=== PATIENT | female | born 1945 | race Caucasian/White ===

== ENCOUNTER 2016-10-22 11:33 | Inpatient (IN) | payer OTHER, MEDICARE ==
[~2016-10-22] VITALS: Ht 152.4 cm; Wt 75.4 kg
[~2016-10-22 11:33] MED LIST: AMITIZA24 MICROGR PO; AMITRIPTYLINE100 MG PO; AMLODIPINE BESY10 MG PO; ATARAX10 MG PO; ATIVAN1 MG PO; BENTYL20 MG PO; CEFTIN500 MG PO; CHLORTHALIDONE25 MG PO; CIPRO500 MG PO; CYMBALTA60 MG PO; DIAZEPAM10 MG PO; DIOVAN160 MG PO; DOCUSATE SODIU1 EAC1 PO; FOSAMAX70 MG PO; GABAPENTIN300 MG PO; HYDROCHLOROTHIA25 MG PO; HYDROXYZINE HCL50 MG PO; KEFLEX500 MG PO; LACTULOSE10 GM/151 PO; LEVAQUIN750 MG PO; LEVO-T50 MCG PO; LEVOTHYROXINE50 MCG PO; LEVOTHYROXINE75 MCG PO; LORAZEPAM2 MG PO; LOSARTAN POTAS100 MG PO; LOSARTAN POTASS25 MG PO; NEURONTIN300 MG PO; NEURONTIN400 MG PO; NORVASC10 MG PO; OXYCODONE HCL20 M1 PO; PRAZOSIN HCL1 MG PO; PREDNISONE10 MG PO; PROAIR HFA8.5 GM IH; QUETIAPINE FUM200 MG PO; SEROQUEL100 MG PO; SEROQUEL200 MG PO; SERTRALINE HCL100 MG PO; SERTRALINE HCL50 MG PO; SPIRIVA RESPIMAT4 GM IH; SPIRIVA1 INHALATI IH; SUBUTEX; TENORMIN100 MG PO; TRAMADOL HCL50 MG PO; TRAZODONE HCL50 MG PO; ULTRAM50 MG PO; VENTOLIN HFA18 GM IH; [UNRECOGNIZED DRUG - OTHER] PO
[2016-10-22 12:41] LABS: HEMATOCRIT 46.7 % (36.0-46.0); MCH 28.5 PG (29.0-34.0); MCV 83.8 FL (83-99); MEAN PLAT.VOLUME 9.2 uM^3 (9.5-12.4); PLATELET COUNT 293 K/uL (156-360); RBC DIS.WIDTH-CV 14.9 % (11.8-14.6); RBC DIS.WIDTH-SD 45.2 % (39-53); RED BLOOD COUNT 5.57 M/uL (3.80-5.20); WHITE BLOOD COUNT 10.9 K/uL (4.1-10.2)
[2016-10-22 12:44] LABS: CHLORIDE 102 mEq/L (99-109); SODIUM 137 mEq/L (136-147)
[2016-10-22 12:46] LABS: GLUCOSE 130 mg/dL (70-99)
[2016-10-22 12:47] LABS: ANION GAP 12 MEQ/L (2-14)
[2016-10-22 12:50] LABS: GFR ESTIMATE (CALCULATED) > 59 mL/min/
[2016-10-22 12:51] LABS: UREA NITROGEN (BUN) 6 mg/dL (9-23)
[2016-10-22 12:57] LABS: TROP-I INTERPRETATION NEGATIVE; TROPONIN-I 0.01 ng/mL (0.0-0.30)
[2016-10-22 13:41] LABS: ADD MIUA? YES; BILIRUBIN NEGATIVE; BLOOD SMALL; COLOR YELLOW ((YELLOW)); GLUCOSE (STRIP) 50; KETONES 20; LEUKOCYTES NEGATIVE; NITRITE NEGATIVE; PROTEIN (STRIP) 100; SPECIFIC GRAVITY 1.013 (1.000-1.030); UROBILINOGEN 0.2 MG/DL (0.2-1.0)
[2016-10-22 13:56] LABS: BACTERIA NONE SEEN /HPF; EPITHELIAL CELLS RARE /HPF; MUCUS TRACE /LPF; UCUL ADDED? NO; WHITE BLOOD CELLS 0-5 /HPF (0-5)
[2016-10-22 19:13] LABS: IRON 118 MCG/DL (35-150)
[2016-10-22 19:21] VITALS: BP 218/98
[2016-10-22 19:52] LABS: LIPASE < 3.0 U/L (1.0-51.0)
[2016-10-22 21:07] VITALS: BP 200/90
[2016-10-23] VITALS (9 sets, daily range): BP systolic 142–206; BP diastolic 72–98
[2016-10-23] MEDS ORDERED: LEVOTHYROXINE50 MCG PO (00:25)
[2016-10-23] MEDS ORDERED: PANTOPRAZOLE SO40 MG PO (00:25)
[2016-10-23] MEDS ORDERED: LOSARTAN POTASS25 MG PO (00:26)
[2016-10-23] MEDS ORDERED: DULOXETINE HCL30 MG PO (00:26)
[2016-10-23] MEDS ORDERED: SPIRIVA RESPIMAT4 GM IH (00:26)
[2016-10-23 02:02] LABS: CHLORIDE 102 mEq/L (99-109); POTASSIUM 3.3 mEq/L (3.7-5.4); SODIUM 138 mEq/L (136-147)
[2016-10-23 02:03] LABS: MAGNESIUM 2.5 mg/dL (1.3-2.7)
[2016-10-23 02:05] LABS: GLUCOSE 148 mg/dL (70-99)
[2016-10-23 02:06] LABS: ANION GAP 18 MEQ/L (2-14); TOTAL BILIRUBIN 1.6 mg/dL (0.0-1.0)
[2016-10-23 02:07] LABS: SERUM ETHYL ALCOHOL < 10 mg/dL
[2016-10-23 02:08] LABS: ALKALINE PHOSPHATASE 81 IU/L (3-129); GFR ESTIMATE (CALCULATED) > 59 mL/min/
[2016-10-23 02:09] LABS: UREA NITROGEN (BUN) 11 mg/dL (9-23)
[2016-10-23 02:12] LABS: LIPASE 8 U/L (1.0-51.0)
[2016-10-23 05:56] LABS: EOSINOPHIL (%) 0 % (0-5); HEMATOCRIT 50.2 % (36.0-46.0); IMMATURE GRANULOCYTE (%) 0.7 % (0.0-0.7); IMMATURE GRANULOCYTE COUNT 0.1 K/uL; MCH 29.3 PG (29.0-34.0); MCHC 35.1 G/DL (30.0-36.0); MCV 83.7 FL (83-99); MEAN PLAT.VOLUME 9.4 uM^3 (9.5-12.4); MONOCYTE (%) 7.7 % (3-12); MONOCYTE COUNT 1.5 K/uL (0-0.8); NEUTROPHIL (%) 81.2 % (45-76); PLATELET COUNT 370 K/uL (156-360); RBC DIS.WIDTH-CV 16.2 % (11.8-14.6); RBC DIS.WIDTH-SD 47.7 % (39-53); WHITE BLOOD COUNT 19.7 K/uL (4.1-10.2)
[2016-10-23 06:24] LABS: ALKALINE PHOSPHATASE 63 IU/L (3-129); ANION GAP 12 MEQ/L (2-14); CHLORIDE 100 MEQ/L (99-109); DIRECT BILIRUBIN 0.3 mg/dL (0.0-0.3); GFR ESTIMATE (CALCULATED) > 59 mL/min/; GLUCOSE 127 mg/dL (70-99); SAMPLE HEMOLYSIS CHECK 0; SAMPLE ICTERIC CHECK 0; SAMPLE LIPEMIA CHECK 0; SODIUM 136 MEQ/L (136-147); TOTAL BILIRUBIN 1.3 MG/DL (0.0-1.0); UREA NITROGEN (BUN) 12 mg/dL (9-23)
[2016-10-23 06:25] LABS: POINT-OF-CARE METER ID UU13113831
[2016-10-23 07:51] LABS: ADD MIUA? YES; BILIRUBIN NEGATIVE; BLOOD SMALL; COLOR AMBER ((YELLOW)); GLUCOSE (STRIP) NEGATIVE; KETONES 20; LEUKOCYTES SMALL; NITRITE NEGATIVE; PROTEIN (STRIP) >=500; SPECIFIC GRAVITY 1.017 (1.000-1.030); UROBILINOGEN 0.2 MG/DL (0.2-1.0)
[2016-10-23 08:22] LABS: RED BLOOD CELLS 0-5 /HPF (0-5); WHITE BLOOD CELLS 30-40 /HPF (0-5)
[2016-10-23 08:23] LABS: BACTERIA 4+ /HPF; CASTS NONE SEEN /LPF; CRYSTALS NONE SEEN; EPITHELIAL CELLS RARE /HPF; MUCUS 1+ /LPF; UCUL ADDED? YES
[2016-10-23 08:28] LABS: AMPHETAMINES QUANT VALUE 0 NG/ML; BARBITUATES QUANT VALUE 0 NG/ML; BENZODIAZEPINES, URINE SCREEN POSITIVE (200 ng/mL); PHENCYCLIDINE QUANT VALUE 0 NG/ML
[2016-10-23] MEDS ORDERED: AMLODIPINE BESY10 MG PO (09:43)
[2016-10-23] MEDS ORDERED: PRAZOSIN HCL2 MG PO (09:44)
[2016-10-23] MEDS ORDERED: QUETIAPINE FUM300 M1 PO (09:44)
[2016-10-23] MEDS ORDERED: [UNRECOGNIZED DRUG - SUPPLY] MC (12:11)
[2016-10-23 12:13] LABS: POINT-OF-CARE METER ID UU13113831
[2016-10-23] MEDS ORDERED: BREO ELLIPTA I1 EACH IH (12:13)
[2016-10-23] MEDS ORDERED: FOSAMAX70 MG PO (14:31)
[2016-10-23] MEDS ORDERED: CALCIUM500 M4 PO (14:33)
[2016-10-23] MEDS ORDERED: VITAMIN D31000 UNI2 PO (14:33)
[2016-10-23 18:12] LABS: POINT-OF-CARE METER ID UU13113700
[2016-10-23 18:14] LABS: EOSINOPHIL (%) 0.1 % (0-5); HEMATOCRIT 46.6 % (36.0-46.0); IMMATURE GRANULOCYTE (%) 0.5 % (0.0-0.7); IMMATURE GRANULOCYTE COUNT 0.1 K/uL; INSTRUMENT ABS NEUTROPHIL CT 11.6 K/uL; LYMPHOCYTE COUNT 1.9 K/uL (1.0-2.8); MCH 28.9 PG (29.0-34.0); MCHC 34.8 G/DL (30.0-36.0); MCV 83.1 FL (83-99); MEAN PLAT.VOLUME 9.1 uM^3 (9.5-12.4); MONOCYTE (%) 7.2 % (3-12); MONOCYTE COUNT 1.1 K/uL (0-0.8); NEUTROPHIL (%) 79.4 % (45-76); NEUTROPHIL COUNT 11.6 K/uL (1.8-6.4); PLATELET COUNT 290 K/uL (156-360); RBC DIS.WIDTH-CV 15.4 % (11.8-14.6); RBC DIS.WIDTH-SD 46.8 % (39-53); RED BLOOD COUNT 5.61 M/uL (3.80-5.20); WHITE BLOOD COUNT 14.7 K/uL (4.1-10.2)
[2016-10-23 18:45] LABS: ALKALINE PHOSPHATASE 55 IU/L (3-129); ANION GAP 12 MEQ/L (2-14); CHLORIDE 102 MEQ/L (99-109); GFR ESTIMATE (CALCULATED) > 59 mL/min/; GLUCOSE 131 mg/dL (70-99); POTASSIUM 3.2 MEQ/L (3.7-5.4); SAMPLE HEMOLYSIS CHECK 0; SAMPLE ICTERIC CHECK 0; SAMPLE LIPEMIA CHECK 0; SODIUM 136 MEQ/L (136-147); TOTAL BILIRUBIN 1.8 MG/DL (0.0-1.0); UREA NITROGEN (BUN) 13 mg/dL (9-23)
[2016-10-24 00:05] VITALS: BP 124/59
[2016-10-24 00:17] LABS: POINT-OF-CARE METER ID UU13113700
[2016-10-24 03:21] VITALS: BP 100/56
[2016-10-24 06:09] LABS: EOSINOPHIL (%) 0.3 % (0-5); HEMATOCRIT 41.3 % (36.0-46.0); IMMATURE GRANULOCYTE (%) 0.5 % (0.0-0.7); IMMATURE GRANULOCYTE COUNT 0.1 K/uL; INSTRUMENT ABS NEUTROPHIL CT 7.8 K/uL; LYMPHOCYTE COUNT 2.2 K/uL (1.0-2.8); MCH 29.1 PG (29.0-34.0); MCHC 34.4 G/DL (30.0-36.0); MCV 84.6 FL (83-99); MEAN PLAT.VOLUME 9.5 uM^3 (9.5-12.4); MONOCYTE (%) 11.6 % (3-12); MONOCYTE COUNT 1.3 K/uL (0-0.8); NEUTROPHIL (%) 68.5 % (45-76); NEUTROPHIL COUNT 7.8 K/uL (1.8-6.4); PLATELET COUNT 247 K/uL (156-360); RBC DIS.WIDTH-CV 15.4 % (11.8-14.6); RBC DIS.WIDTH-SD 47.5 % (39-53); RED BLOOD COUNT 4.88 M/uL (3.80-5.20); WHITE BLOOD COUNT 11.4 K/uL (4.1-10.2)
[2016-10-24 07:20] VITALS: BP 111/60
[2016-10-24 12:00] VITALS: BP 102/55
[2016-10-24 16:00] VITALS: BP 161/77
[2016-10-24 17:36] LABS: POINT-OF-CARE METER ID UU13113700
[2016-10-24 20:00] VITALS: BP 133/65
[2016-10-24 23:56] LABS: POINT-OF-CARE METER ID UU14162513
[2016-10-25] VITALS: BP 99/57
[2016-10-25 04:00] VITALS: BP 114/65
[2016-10-25 05:25] LABS: EOSINOPHIL (%) 2.2 % (0-5); EOSINOPHIL COUNT 0.2 K/uL (0-0.3); HEMATOCRIT 36.7 % (36.0-46.0); IMMATURE GRANULOCYTE (%) 0.1 % (0.0-0.7); INSTRUMENT ABS NEUTROPHIL CT 5.1 K/uL; LYMPHOCYTE COUNT 2.3 K/uL (1.0-2.8); MCH 29.6 PG (29.0-34.0); MCHC 34.3 G/DL (30.0-36.0); MCV 86.4 FL (83-99); MEAN PLAT.VOLUME 9.5 uM^3 (9.5-12.4); MONOCYTE (%) 10.5 % (3-12); MONOCYTE COUNT 0.9 K/uL (0-0.8); NEUTROPHIL (%) 59.6 % (45-76); NEUTROPHIL COUNT 5.1 K/uL (1.8-6.4); PLATELET COUNT 210 K/uL (156-360); RBC DIS.WIDTH-CV 15.2 % (11.8-14.6); RBC DIS.WIDTH-SD 48.4 % (39-53); RED BLOOD COUNT 4.25 M/uL (3.80-5.20); WHITE BLOOD COUNT 8.5 K/uL (4.1-10.2)
[2016-10-25 05:42] LABS: POINT-OF-CARE METER ID UU13113700
[2016-10-25 07:08] VITALS: BP 101/55
[2016-10-25 07:56] LABS: ALKALINE PHOSPHATASE 40 IU/L (3-129); ANION GAP 8 MEQ/L (2-14); CHLORIDE 105 MEQ/L (99-109); GFR ESTIMATE (CALCULATED) > 59 mL/min/; LIPASE 5 U/L (1.0-51.0); POTASSIUM 3.2 MEQ/L (3.7-5.4); SAMPLE HEMOLYSIS CHECK 0; SAMPLE ICTERIC CHECK 0; SAMPLE LIPEMIA CHECK 0; SODIUM 137 MEQ/L (136-147); UREA NITROGEN (BUN) 17 mg/dL (9-23)
[2016-10-25 07:58] LABS: GLUCOSE 87 mg/dL (70-99); TOTAL BILIRUBIN 1.1 MG/DL (0.0-1.0)
[2016-10-25 11:36] VITALS: BP 126/97
[2016-10-25 12:02] LABS: POINT-OF-CARE METER ID UU13113831
[2016-10-25] MEDS ORDERED: OXYCODONE HCL30 MG PO (18:12)
[2016-10-25] MEDS ORDERED: PROAIR HFA8.5 GM IH (18:12)
[2016-10-25 20:00] VITALS: BP 104/57
[2016-10-25 21:06] LABS: POINT-OF-CARE METER ID UU14162513
[2016-10-26 00:28] VITALS: BP 96/55
[2016-10-26 00:39] LABS: POINT-OF-CARE METER ID UU14162513
[2016-10-26 04:00] VITALS: BP 87/51
[2016-10-26 06:00] VITALS: BP 119/68
[2016-10-26 06:09] LABS: POINT-OF-CARE METER ID UU14162513
[2016-10-26 08:15] VITALS: BP 133/76
[2016-10-26 11:17] VITALS: BP 136/71
[2016-10-26 12:17] LABS: POINT-OF-CARE METER ID UU13113831
[2016-10-26] MEDS ORDERED: K-DUR20 MEQ PO (13:48)
== END 2016-10-26 14:07 | disposition home or self-care (01) | DRG 440 ==
LOC: EME → EDBD 11:33 → EME 11:33 → EDOF 16:22 → ENRESERV 16:27 → 5WEST 19:11 → ENRESERV 10-23 01:32 → 2EAST 10-23 01:32 → 5WEST 10-23 01:32 → ENRESERV 10-23 01:37 → CANRESERV 10-23 01:37 → ENRESERV 10-23 02:01 → 5WEST 10-26 14:07
PROVIDERS: Emergency Medicine; Hospitalist; Internal Medicine Gastroenterology; Physician Assistant; Physician Assistant Medical
PROC: 0DB78ZX Excision of Stomach, Pylorus, Via Natural or Artificial Opening Endoscopic, Diagnostic (ICD-10-PCS; principal; 2016-10-24)
DX: K85.90 Acute pancreatitis without necrosis or infection, unspecified (principal); F31.9 Bipolar disorder, unspecified; E86.0 Dehydration; I16.0 Hypertensive urgency; R11.2 Nausea with vomiting, unspecified; F11.10 Opioid abuse, uncomplicated; F12.10 Cannabis abuse, uncomplicated; F41.9 Anxiety disorder, unspecified; I10 Essential (primary) hypertension; E03.9 Hypothyroidism, unspecified; J44.9 Chronic obstructive pulmonary disease, unspecified; G43.909 Migraine, unspecified, not intractable, without status migrainosus; M79.7 Fibromyalgia; K59.09 Other constipation; E87.6 Hypokalemia; K57.30 Diverticulosis of large intestine without perforation or abscess without bleeding; N28.1 Cyst of kidney, acquired; M19.90 Unspecified osteoarthritis, unspecified site; G89.29 Other chronic pain; M54.9 Dorsalgia, unspecified; R33.9 Retention of urine, unspecified; Z87.891 Personal history of nicotine dependence; Z68.32 Body mass index [BMI] 32.0-32.9, adult; E66.9 Obesity, unspecified; Z90.49 Acquired absence of other specified parts of digestive tract; Z87.440 Personal history of urinary (tract) infections; Z79.899 Other long term (current) drug therapy; Z79.83 Long term (current) use of bisphosphonates
CPT/HCPCS: 70450; 71010; 74176; 80048; 80053; 80076; 80306 90; 81003; 82272; 82948; 83540; 83690; 83735; 84439; 84443; 84466; 84484; 85025; 85025 91; 85027; 87040; 87077; 87086; 87177; 87186; 87329; 87493; 88305; 88342 TC; 93005; 94640; 94640 76; 99281; 99284; C9113; G0378; G0480; J0360; J0696; J1170; J1200; J1650; J1815; J1885; J2060; J2185; J2250; J2270; J2405; J2765; J3480; J7030; J7050; J7120

== ENCOUNTER 2017-03-03 12:15 | Inpatient (IN) | payer OTHER, MEDICARE ==
[~2017-03-03] VITALS: Ht 170.2 cm; Wt 71.2 kg
[~2017-03-03 12:15] MED LIST changes: +BREO ELLIPTA I1 EACH IH; +CALCIUM500 M4 PO; +DULOXETINE HCL30 MG PO; +K-DUR20 MEQ PO; +OXYCODONE HCL30 MG PO; +PANTOPRAZOLE SO40 MG PO; +PRAZOSIN HCL2 MG PO; +SEROQUEL300 MG PO; +VITAMIN D31000 UNI2 PO; +[UNRECOGNIZED DRUG - SUPPLY] MC
[2017-03-03 13:54] LABS: HEMATOCRIT 37.8 % (36.0-46.0); HEMOGLOBIN 13.2 G/DL (11.9-15.5); MCH 29.3 PG (29.0-34.0); MCHC 34.9 G/DL (30.0-36.0); PLATELET COUNT 241 K/uL (156-360); RBC DIS.WIDTH-CV 12.7 % (11.8-14.6); RBC DIS.WIDTH-SD 39.1 % (39-53); WHITE BLOOD COUNT 10.4 K/uL (4.1-10.2)
[2017-03-03 14:07] LABS: ALBUMIN 4.5 g/dL (3.2-4.8); CHLORIDE 99 mEq/L (99-109); POTASSIUM 3.4 mEq/L (3.7-5.4); SODIUM 135 mEq/L (136-147)
[2017-03-03 14:10] LABS: GLUCOSE 127 mg/dL (70-99); TOTAL PROTEIN 7.5 g/dL (6.4-8.3)
[2017-03-03 14:12] LABS: TOTAL BILIRUBIN 1.5 mg/dL (0.0-1.0)
[2017-03-03 14:13] LABS: CREATININE 0.6 mg/dL (0.6-1.3); GFR ESTIMATE (CALCULATED) > 59 mL/min/
[2017-03-03 14:14] LABS: ALKALINE PHOSPHATASE 63 IU/L (3-129)
[2017-03-03 14:15] LABS: AST (GOT) 15 IU/L (2-34); UREA NITROGEN (BUN) 10 mg/dL (9-23)
[2017-03-03 14:17] LABS: ACETAMINOPHEN (TYLENOL) < 10 mcg/mL (10-30); ALT (GPT) 11 IU/L (3-49); SALICYLATE < 5.0 MG/DL (15-30)
[2017-03-03 14:18] LABS: LIPASE 10 U/L (1.0-51.0)
[2017-03-03 15:44] LABS: APPEARANCE SL.HAZY ((CLEAR)); BILIRUBIN NEGATIVE; BLOOD SMALL; COLOR YELLOW ((YELLOW)); GLUCOSE (STRIP) 50; KETONES 20; LEUKOCYTES NEGATIVE; NITRITE NEGATIVE; PROTEIN (STRIP) 100; SPECIFIC GRAVITY 1.014 (1.000-1.030); UROBILINOGEN 0.2 MG/DL (0.2-1.0)
[2017-03-03 15:56] LABS: AMPHETAMINE NEGATIVE (500 ng/mL); BACTERIA RARE /HPF; BARBITURATES NEGATIVE (200 ng/mL); BENZODIAZEPINES NEGATIVE (150 ng/mL); BUPRENORPHINE NEGATIVE (10 ng/mL); COCAINE NEGATIVE (150 ng/mL); EPITHELIAL CELLS RARE /HPF; METHADONE NEGATIVE (200 ng/mL); METHAMPHETAMINE NEGATIVE (500 ng/mL); MUCUS TRACE /LPF; OPIATES (MORPHINE) NEGATIVE (100 ng/mL); OXYCODONE NEGATIVE (100 ng/mL); PHENCYCLIDINE NEGATIVE (25 ng/mL); PROPOXYPHENE NEGATIVE (300 ng/mL); THC CANNABINOIDS NEGATIVE (50 ng/mL); TRICYCLIC ANTIDEPRESSANTS NEGATIVE (300 ng/mL); UCUL ADDED? NO; WHITE BLOOD CELLS 0-5 /HPF (0-5)
[2017-03-03] MEDS ORDERED: AMBIEN5 MG PO (17:42)
[2017-03-03] MEDS ORDERED: PROVENTIL HFA6.7 GM IH (17:43)
[2017-03-03 19:34] VITALS: BP 131/76
[2017-03-03 19:36] VITALS: BP 131/76
[2017-03-04 07:12] VITALS: BP 124/65
[2017-03-04 10:43] VITALS: BP 105/59
[2017-03-04 16:02] VITALS: BP 104/62
[2017-03-05 07:19] VITALS: BP 128/60
[2017-03-05 15:39] VITALS: BP 140/74
[2017-03-06 07:46] VITALS: BP 132/73
[2017-03-06] MEDS ORDERED: CLONAZEPAM1 MG PO (13:51)
[2017-03-06] MEDS ORDERED: QUETIAPINE FUM200 MG PO (13:51)
[2017-03-06] MEDS ORDERED: MIRTAZAPINE15 MG PO (13:51)
[2017-03-06] MEDS ORDERED: LORAZEPAM0.5 MG PO ×2 (13:51)
[2017-03-06] MEDS ORDERED: ROPINIROLE HCL0.5 MG PO (13:52)
[2017-03-06] MEDS ORDERED: DOCUSATE SODIU100 MG PO (13:52)
[2017-03-06 15:53] VITALS: BP 142/72
== END 2017-03-06 16:43 | DRG 881 ==
LOC: EME 12:15 → EDOF 14:51 → CANRESERV 14:54 → ENRESERV 14:54 → EDOF 17:50 → 1WEST 17:50 → EDOF 17:50 → ENRESERV 19:00 → 1WEST 19:24
PROVIDERS: Physician Assistant
DX: F32.9 Major depressive disorder, single episode, unspecified (principal); F51.04 Psychophysiologic insomnia; R45.851 Suicidal ideations; G89.29 Other chronic pain; I10 Essential (primary) hypertension; J44.9 Chronic obstructive pulmonary disease, unspecified; E03.9 Hypothyroidism, unspecified; F41.1 Generalized anxiety disorder; G43.909 Migraine, unspecified, not intractable, without status migrainosus; M79.7 Fibromyalgia; M19.90 Unspecified osteoarthritis, unspecified site; Z87.891 Personal history of nicotine dependence; Z99.81 Dependence on supplemental oxygen; K76.0 Fatty (change of) liver, not elsewhere classified; K56.41 Fecal impaction; F11.21 Opioid dependence, in remission; K42.9 Umbilical hernia without obstruction or gangrene
CPT/HCPCS: 74177; 80053; 81003; 83690; 84443; 85027; 90839; 94640; 94799; 97166 GO; 99202; 99281; 99285; G0480; J2060; J7030

== ENCOUNTER 2017-05-10 13:31 | Inpatient (IN) | payer OTHER, MEDICARE ==
[~2017-05-10] VITALS: Ht 170.2 cm; Wt 79.2 kg
[~2017-05-10 13:31] MED LIST changes: +AMBIEN5 MG PO; +CLONAZEPAM1 MG PO; +DOCUSATE SODIU100 MG PO; +LORAZEPAM0.5 MG PO; +MIRTAZAPINE15 MG PO; +PROVENTIL HFA6.7 GM IH; +ROPINIROLE HCL0.5 MG PO; -VITAMIN D31000 UNI2 PO; +VITAMIN D33000 UNIT PO
[2017-05-10 14:07] LABS: HEMATOCRIT 34.4 % (36.0-46.0); HEMOGLOBIN 11.3 G/DL (11.9-15.5); MCH 29.5 PG (29.0-34.0); MCHC 32.8 G/DL (30.0-36.0); MCV 89.8 FL (83-99); PLATELET COUNT 294 K/uL (156-360); RBC DIS.WIDTH-CV 13.5 % (11.8-14.6); RBC DIS.WIDTH-SD 44.7 % (39-53); RED BLOOD COUNT 3.83 M/uL (3.80-5.20)
[2017-05-10 14:20] LABS: CHLORIDE 100 mEq/L (99-109); POTASSIUM 3.7 mEq/L (3.7-5.4); SODIUM 139 mEq/L (136-147)
[2017-05-10 14:21] LABS: GLUCOSE 138 mg/dL (70-99)
[2017-05-10 14:25] LABS: CREATININE 0.7 mg/dL (0.6-1.3); GFR ESTIMATE (CALCULATED) > 59 mL/min/
[2017-05-10 14:26] LABS: UREA NITROGEN (BUN) 11 mg/dL (9-23)
[2017-05-10 14:30] LABS: TROP-I INTERPRETATION NEGATIVE; TROPONIN-I 0.02 ng/mL (0.0-0.30)
[2017-05-10] MEDS ORDERED: ROPINIROLE HC0.25 MG PO (16:17)
[2017-05-10] MEDS ORDERED: ZOLPIDEM TARTRAT5 MG PO (16:29)
[2017-05-10] MEDS ORDERED: QUETIAPINE FUM300 MG PO (16:31)
[2017-05-10] MEDS ORDERED: DULOXETINE HCL30 MG PO (16:32)
[2017-05-10] MEDS ORDERED: DESYREL100 MG PO (16:34)
[2017-05-10] MEDS ORDERED: DESYREL 150 MG150 MG PO (16:36)
[2017-05-10] MEDS ORDERED: ALENDRONATE SOD70 MG PO (16:37)
[2017-05-10] MEDS ORDERED: ATIVAN0.5 MG PO (16:41)
[2017-05-10 17:51] VITALS: BP 114/68
[2017-05-11 00:53] VITALS: BP 112/52
[2017-05-11 05:58] LABS: HEMATOCRIT 37.4 % (36.0-46.0); HEMOGLOBIN 11.9 G/DL (11.9-15.5); MCH 28.3 PG (29.0-34.0); MCHC 31.8 G/DL (30.0-36.0); MCV 88.8 FL (83-99); PLATELET COUNT 352 K/uL (156-360); RBC DIS.WIDTH-CV 13.4 % (11.8-14.6); RED BLOOD COUNT 4.21 M/uL (3.80-5.20); WHITE BLOOD COUNT 11.7 K/uL (4.1-10.2)
[2017-05-11 06:32] LABS: CHLORIDE 101 MEQ/L (99-109); CREATININE 0.6 MG/DL (0.6-1.3); GFR ESTIMATE (CALCULATED) > 59 mL/min/; GLUCOSE 153 mg/dL (70-99); SODIUM 141 MEQ/L (136-147); UREA NITROGEN (BUN) 12 mg/dL (9-23)
[2017-05-11 06:44] LABS: POTASSIUM 4.5 MEQ/L (3.7-5.4)
[2017-05-11 08:06] VITALS: BP 130/66
[2017-05-11 15:55] VITALS: BP 153/81
[2017-05-11 22:00] VITALS: BP 134/74
[2017-05-12 08:23] VITALS: BP 127/67
[2017-05-12] MEDS ORDERED: CEFTIN250 MG PO (10:00)
[2017-05-12] MEDS ORDERED: MUCINEX600 MG PO (10:00)
[2017-05-12] MEDS ORDERED: TRAMADOL HCL50 MG PO (10:00)
[2017-05-12] MEDS ORDERED: PREDNISONE5 M1 PO (10:00)
[2017-05-12] MEDS ORDERED: BENZONATATE100 MG PO (10:00)
== END 2017-05-12 16:35 | disposition home health service (06) | DRG 189 ==
LOC: EME 13:31 → 5SOUTH 15:57 → EDOF 15:57 → ENRESERV 16:07 → 5SOUTH 17:14
PROVIDERS: Emergency Medicine; Internal Medicine
DX: J96.21 Acute and chronic respiratory failure with hypoxia (principal); J18.9 Pneumonia, unspecified organism; J44.0 Chronic obstructive pulmonary disease with (acute) lower respiratory infection; J44.1 Chronic obstructive pulmonary disease with (acute) exacerbation; F32.9 Major depressive disorder, single episode, unspecified; F41.1 Generalized anxiety disorder; J20.9 Acute bronchitis, unspecified; I10 Essential (primary) hypertension; M79.7 Fibromyalgia; G25.81 Restless legs syndrome; K59.09 Other constipation; Z99.81 Dependence on supplemental oxygen; Z79.83 Long term (current) use of bisphosphonates; F51.04 Psychophysiologic insomnia; Z87.891 Personal history of nicotine dependence
CPT/HCPCS: 71046; 71250; 80048; 83880; 84484; 85027; 87040; 87070; 87205; 87449; 87641; 93005; 94640; 94640 76; 94760; 94799; 99202; 99281; 99285; J0456; J0696; J1650; J2405; J2930; J7512